=== PATIENT | female | born 1965 | race Caucasian/White ===

== ENCOUNTER → 2016-07-13 | Outpatient (CLI) | payer OTHER | LOC: FIMAGING 09:01 | PROVIDERS: ATTEND Physician Assistant Medical | DX: R92.8 Other abnormal and inconclusive findings on diagnostic imaging of breast (principal) | CPT/HCPCS: 0159T; C8908 ==

== ENCOUNTER → 2016-07-20 | Outpatient (CLI) | payer OTHER | LOC: BRMIMAGING 10:18 | PROVIDERS: ATTEND Physician Assistant Medical | DX: R92.8 Other abnormal and inconclusive findings on diagnostic imaging of breast (principal) | CPT/HCPCS: 76641-PO ==

== ENCOUNTER → 2016-08-10 | Outpatient (CLI) | payer OTHER ==
[~2016-08-10] MED LIST: BUPIVACAINE 0.5% 30 ML SDV ONE; GADOBUTROL 10 ML VIAL IVP ONE; LIDOCAINE 1% 5 ML SDV ONE; MIDAZOLAM 2 MG/2 ML VIAL ONE; NA BICARBONATE 50 MEQ/50 ML VIAL ONE; ONDANSETRON 4 MG/2 ML VIAL ONE; fentaNYL 100 MCG/2 ML INJ ONE
== END ==
LOC: FIMAGING 08:09
PROVIDERS: ATTEND Physician Assistant Medical
PROC: 0HBU3ZX Excision of Left Breast, Percutaneous Approach, Diagnostic (ICD-10-PCS; principal; 2016-08-10)
PROC: BH3 Imaging, Skin, Subcutaneous Tissue and Breast, Magnetic Resonance Imaging (MRI) (ICD-10-PCS; principal; 2016-08-10)
DX: N60.12 Diffuse cystic mastopathy of left breast (principal); N60.42 Mammary duct ectasia of left breast; L76.22 Postprocedural hemorrhage of skin and subcutaneous tissue following other procedure
CPT/HCPCS: A9585; J2250; J2405; J3010

== ENCOUNTER → 2017-10-04 | Outpatient (CLI) | payer OTHER | LOC: BRMIMAGING 08:19 | PROVIDERS: ATTEND Physician Assistant Medical | DX: Z12.31 Encounter for screening mammogram for malignant neoplasm of breast (principal) ==

== ENCOUNTER → 2018-10-31 | Outpatient (CLI) | payer OTHER | LOC: BRMIMAGING 09:32 ==